=== PATIENT | male | born 1980 | race American Indian/Alaskan Native ===

== ENCOUNTER 2021-01-22 23:23 | Emergency (ER) | payer MEDICAID, OTHER ==
[2021-01-23 00:10] VITALS: BP 139/81
== END 2021-01-23 01:00 | disposition left against medical advice (07) ==
LOC: ED 23:23
DX: F32.9 Major depressive disorder, single episode, unspecified (principal); Z53.21 Procedure and treatment not carried out due to patient leaving prior to being seen by health care provider